=== PATIENT | male | born 1950 | race African-American/Black ===

== ENCOUNTER 2018-11-28 12:10 | Emergency (ER) | payer OTHER, BC | END 2018-11-28 16:24 | disposition home or self-care (01) | LOC: FER 12:10 ==

== ENCOUNTER → 2019-03-05 | Day surgery (SDC) | payer OTHER, BC ==
[2019-03-04 18:28] VITALS: BMI 29.2
[~2019-03-05] MED LIST: KETOROLAC TROMETHAMINE 30 MG/1 ML VIAL ONE; LIDOCAINE HCL 1%, 10 MG/ML (20ML VIAL) NR ONE; MEPERIDINE HCL 25 MG/ML VIAL IM ONE; MEPERIDINE HCL 25 MG/ML VIAL ONE; MIDAZOLAM HCL 2 MG/2 ML SINGLE DOSE VIAL ONE; PROPOFOL 20 ML ONE; ceFAZolin SODIUM 1 GM VIAL IVPB ONE; ceFAZolin SODIUM 1 GM VIAL ONE
[2019-03-05 20:41] VITALS: BP 159/78; PULSE 74; TEMP 98.2
--- NOTE | 2019-03-15 11:04 | PATH ---
Surgical Pathology Report Patient Name: TAM WYMAN [facility]. Rec. #: [id number] /Age/Gender: 1950 (Age: 68) / M Account: [id number] Location: [facility] SURGICAL Taken: 03/05/2019 Received: 03/08/2019 Reported: 03/15/2019 Physicians: Tam Balderas DPM Specimen(s) Received BONE LEFT HALLUX Clinical History Left hallux osteomyelitis Final Diagnosis BONE LEFT HALLUX, EXCISION: PORTION OF BONE WITH FOCAL CHRONIC OSTEOMYELITIS. SEPARATE PORTIONS OF SKIN WITH CHRONIC INFLAMMATION AND GRANULATION TISSUE. Electronically Signed Urvashi Hall M.D. Gross Description Received in formalin labeled "bone left hallux," is a 5.5 x 3.5 x 1.6 cm aggregate of multiple unoriented fragments of soft tissue, bone and skin. Production Support Specialist sections of the skin and entire bone are submitted in 6 cassettes, following decalcification. 03/08/2019 [place]03/08/2019
--- NOTE | 2019-05-26 16:03 | OP ---
DATE OF OPERATION: 03/05/2019 PREOPERATIVE DIAGNOSIS: Osteomyelitis, right hallux distal phalanx only. POSTOPERATIVE DIAGNOSIS: Osteomyelitis, right hallux distal phalanx only. PROCEDURE: Distal Symes amputation of right distal phalanx and skin flap. SURGEON: José Miguel Balderas DPM. DESCRIPTION OF PROCEDURE: The patient was prepped and draped in the usual manner and sent to the OR in stable condition. A local anesthesia was administered, total of 10 mL lidocaine plain 1% into the operative site combined with MAC anesthesia. An ankle tourniquet was placed for protective measures, should be required during the procedure, and it was well padded. The foot was then prepped and draped in the usual septic manner. Upon obtaining complete anesthesia, attention was directed to the right hallux, where a semi-elliptical fishmouth type incision was made to expose the distal phalanx and to be removed entirely as well as utilizing plastic technique for skin closure to then bring up the plantar flap to be well padded and closed the wound primarily. Once the infected bone was removed, it was flushed utilizing a power pulse lavage with bacitracin added to it. At this point, the wound was inspected, and all signs of any infected tissue or bone were looked for and noted to be clean. At this time, the plantar skin flap was brought up, aligned centrally, and then sutured with 3-0 nylon suture a simple interrupted running technique. Postoperative 3 mL Marcaine plain 0.25% was administered followed by application of Adaptic and dry sterile compressive dressing. Patient was stable throughout the entire procedure and sent to the PACU in stable condition, where he was given both postoperative instructions in both written and verbal form. About 30 minutes later, excessive bleeding was noted to be taking place on the bandage, so at that time I returned to the PACU unit, removed the bandage, and the blood soaked gauze, and replaced it with a clean fresh sterile bandage. Patient was then discharged from the PACU and hospital, placed in a below-knee CAM boot for protective ambulation and will be seen in 2 weeks for suture removal. JOSÉ MIGUEL BALDERAS DPM [id number]
== END | disposition home or self-care (01) ==
LOC: JASU-SURG 11:28
PROVIDERS: ATTEND Podiatrist Foot Surgery
PROC: 0Y6P0Z3 Detachment at Right 1st Toe, Low, Open Approach (ICD-10-PCS; principal; 2019-03-05 14:00)
DX: M86.171 Other acute osteomyelitis, right ankle and foot (principal)
CPT/HCPCS: 87070; 87075; 87186; 87205; 88304-TC; 88311-TC